=== PATIENT | male | born 1945 | race Caucasian/White ===

== ENCOUNTER 2018-04-16 08:42 | Observation (INO) | payer MEDICARE, OTHER | END 2018-04-17 10:30 | disposition home or self-care (01) | LOC: COL.CAR 08:42 → MEDICAL 13:00 → COL.CAR 13:01 → MEDICAL 13:02 | PROVIDERS: ADMIT Hospitalist | DX: I25.10 Atherosclerotic heart disease of native coronary artery without angina pectoris (principal); R94.39 Abnormal result of other cardiovascular function study; I26.99 Other pulmonary embolism without acute cor pulmonale; I10 Essential (primary) hypertension; E78.5 Hyperlipidemia, unspecified; I25.2 Old myocardial infarction; Z79.01 Long term (current) use of anticoagulants; Z85.828 Personal history of other malignant neoplasm of skin; Z82.49 Family history of ischemic heart disease and other diseases of the circulatory system; Z88.8 Allergy status to other drugs, medicaments and biological substances; Z87.891 Personal history of nicotine dependence; Z88.6 Allergy status to analgesic agent ==

== ENCOUNTER 2018-05-24 05:46 | Day surgery (SDC) | payer MEDICARE, OTHER ==
[~2018-05-24] VITALS: Ht 170.2 cm; Wt 83.0 kg
[~2018-05-24 05:46] MED LIST: ASPI325T6 PO; ASPIRIN E.C. 8181 MG PO; BRILINTA90 MG PO; COUMADIN 5MG5 MG/TAB PO; CRESTOR40 MG PO; ELIQUIS 5MG PO; LOPRESSOR 225 MG/TAB PO; LOVENOX 8080 MG/0.8 SQ; MULTI VITAMINS1 TAB PO; PLAVIX 75MG TAB75 MG PO; TYLENOL 500MG500 MG PO; TYLENOL PM EXTR1 TA1 PO; ULTRAM 50MG TAB50 MG PO; VASOTEC 5MG5 MG/TAB PO
[2018-05-24 06:43] VITALS: BP 113/58; PULSE 56; TEMP 97.6
[2018-05-24] MEDS ORDERED: PERCOCET 325 MG1 TA2 PO (07:07)
[2018-05-24] MEDS ORDERED: ASPI325T6 PO (07:07)
[2018-05-24 08:35] VITALS: BP 103/62; PULSE 70; TEMP 97.3
--- NOTE | 2018-05-24 08:35 | NUR ---
Patient arrives back to [facility] alert, denies pain or nausea. Patient monitor applied, vitals stable. Patient's spouse brought to bedside. Patient given soda. Ice packs on left foot and right knee. Oxygen 2L per nasal cannula intact. KENNY packs in place, no drainage noted on dressings.
[2018-05-24 08:50] VITALS: BP 105/63; PULSE 72
--- NOTE | 2018-05-24 08:50 | NUR ---
Patient tolerates soda and crackers without any nausea. Reports slight pain in right knee. Patient is able to move left foot, but reports it still feels somewhat numb.
[2018-05-24 09:05] VITALS: BP 113/63; PULSE 65
[2018-05-24 09:20] VITALS: BP 113/58; PULSE 67
--- NOTE | 2018-05-24 09:20 | NUR ---
Patient reports he is feeling well, reports he is ready to go home. Vital signs stable.
--- NOTE | 2018-05-24 09:35 | NUR ---
Dismissal instructions gone over with patient and patient's spouse. Both verbalize understanding and all questions answered.
--- NOTE | 2018-05-24 09:55 | NUR ---
Patient discharged to home thanking staff for services.
== END 2018-05-24 09:55 | disposition home or self-care (01) ==
LOC: SDCO 05:46
DX: M67.472 Ganglion, left ankle and foot (principal); M23.321 Other meniscus derangements, posterior horn of medial meniscus, right knee; M22.41 Chondromalacia patellae, right knee; I11.0 Hypertensive heart disease with heart failure; I50.30 Unspecified diastolic (congestive) heart failure; I25.10 Atherosclerotic heart disease of native coronary artery without angina pectoris; I25.2 Old myocardial infarction; Z95.5 Presence of coronary angioplasty implant and graft; Z85.820 Personal history of malignant melanoma of skin; E78.00 Pure hypercholesterolemia, unspecified; Z86.718 Personal history of other venous thrombosis and embolism; Z86.711 Personal history of pulmonary embolism; J84.112 Idiopathic pulmonary fibrosis; Z87.891 Personal history of nicotine dependence; Z79.899 Other long term (current) drug therapy; Z79.01 Long term (current) use of anticoagulants; Z79.82 Long term (current) use of aspirin; M19.90 Unspecified osteoarthritis, unspecified site; M54.5 Low back pain
CPT/HCPCS: 28090; 29881; 64450; G0289; J0690; J1100; J2250; J2405; J2704; J3010; J7120

== ENCOUNTER 2019-12-02 09:35 | Day surgery (SDC) | payer MEDICARE, OTHER ==
[2019-12-02] VITALS (9 sets, daily range): BP systolic 98–131; BP diastolic 55–84; PULSE 59–77; TEMP 97.7
[~2019-12-02] VITALS: Ht 170.2 cm; Wt 79.6 kg
[~2019-12-02 09:35] MED LIST changes: +CRESTOR20 MG PO; -CRESTOR40 MG PO; +PERCOCET 325 MG1 TA2 PO
[2019-12-02] MEDS ORDERED: OFEV100 MG PO (09:52)
[2019-12-02] MEDS ORDERED: CEFTIN500 MG PO (09:54)
[2019-12-02] MEDS ORDERED: ASPIRIN E.C. 8181 MG PO (09:54)
[2019-12-02] MEDS ORDERED: ULTRAM 50MG TAB50 MG PO (09:55)
[2019-12-02 10:26] LABS: HEMATOCRIT 41.4 % (42.0-52.0); HEMOGLOBIN 14.1 g/dl (13.5-18.0); MEAN CELL VOLUME 96 fl (80.0-100.0); MEAN CORPUSCULAR HEMOGLOBIN 33 pg (27.0-31.0); MEAN CORPUSCULAR HGB CONC 34 g/dl (33.0-37.0); MEAN PLATELET VOLUME 8.9 fl (7.4-10.4); PLATELET COUNT 220 K/mm3 (130-400); RED BLOOD COUNT 4.31 M/mm3 (4.20-5.60); REDCELL DISTRIBUTION WIDTH-CV 13.1 % (11.5-14.5)
[2019-12-02 10:33] LABS: INR 1.3 (0.8-3.0); PROTHROMBIN TIME 14.1 SECONDS (9.7-12.8)
[2019-12-02 10:35] LABS: PARTIAL THROMBOPLASTIN TIME 31.3 SECONDS (26.0-37.0)
[2019-12-02 11:10] LABS: CALCIUM 9.4 mg/dL (8.4-10.2); CREATININE, serum 0.89 (0.66-1.25); POTASSIUM 4.1 mmol/L (3.4-5.0)
--- NOTE | 2019-12-02 13:03 | NUR ---
SEE MERGE DOCUMENTATION FOR MEDICATION ADMINISRATION TIMES AND INTRA/POST PROCEDURE SEDATION ASSESSMENTS. RIGHT HAND BARBEAU TEST POSITIVE.
--- NOTE | 2019-12-02 13:48 | NUR ---
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 cms intact distal. SR on monitor. pt aware of poc, denies needs at this time. lunch ordered. call light in reach. at bs.
--- NOTE | 2019-12-02 16:45 | NUR ---
PT is ready for discharge. we have reviewed discharge and fu instructions. Pt denies any questions. TR band was deflated without incident, cms remains intact with bandaid, 2x2 and coban dressing on punture site. no bleeding or hematoma has been observed. iv was dc'd with cath intact, dressing was applied. pt has been ambulatory with steady gait. Per Dr. Mcrae, pt was instructed to resume his eliquis this evening. pt to exit via wheelchair.
== END 2019-12-02 18:39 | disposition home or self-care (01) ==
LOC: COL.CAR 09:35
PROVIDERS: Internal Medicine Interventional Cardiology
DX: I25.10 Atherosclerotic heart disease of native coronary artery without angina pectoris (principal); I87.1 Compression of vein; Z85.46 Personal history of malignant neoplasm of prostate; Z86.711 Personal history of pulmonary embolism; I10 Essential (primary) hypertension; E78.5 Hyperlipidemia, unspecified; I25.2 Old myocardial infarction; Z85.828 Personal history of other malignant neoplasm of skin; Z79.82 Long term (current) use of aspirin; Z79.01 Long term (current) use of anticoagulants; Z87.891 Personal history of nicotine dependence; Z88.8 Allergy status to other drugs, medicaments and biological substances
CPT/HCPCS: C1769; J1644; J2250; J3010; Q9967